=== PATIENT | female | born 1990 | race American Indian/Alaskan Native ===

== ENCOUNTER 2017-07-16 06:44 | Inpatient (IN) | payer MEDICAID ==
--- NOTE | 2017-07-16 07:27 | History and Physical Report ---
History of Present Illness Date of examination: 07/16/17 (pt presents c/o ctx and lose of mucous plug) History of present illness: EDC Confirmation: 07/29/2017 Gestational Age: 15 5/7 weeks Past History : 2 Term Births: 0 Premature Births: 0 Living Children: 0 Para: 0 Mult. Births: 0 Prev : 0 Prev. attempt? 0 Aborta: 1 Elect. Ab: 0 Spont. 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 of genital herpes: yes Partner hx. of genital herpes: no Rash, Viral, or Febrile illness since last LMP? no Varicella/Chicken Pox Status: Previous Disease Genetic History Congenital Heart Defect: Mom: no Dad: no Kandy Disease: Mom: no Dad: no Thalassemia Mom: no Dad: no Neural Tube Defect Mom: no Dad: no Down's Syndrome Mom: no Dad: no Jarrod-Sachs Mom: no Dad: no Sickle Cell Disease/Trait Mom: no Dad: no Hemophilia Mom: no Dad: no Muscular Dystrophy Mom: no Dad: no Cystic Fibrosis Mom: no Dad: no Claudia Chorea Mom: no Dad: no Mental Retardation Mom: no Dad: no Fragile X Mom: no Dad: no Other Genetic/Chromosomal Disorder Mom: no Dad: no Child w/other defect Mom: no Dad: no Enviromental Exposures Xray Exposure: no Medication, drug, or alcohol use since LMP: no Chemical/Other Exposure: no Exposure to Cat Liter: no Hx of Parvovirus (Fifth Disease): no Occupational Exposure to Children: none Active Medications (reviewed today): VALACYCLOVIR HCL 1 GM ORAL TABLET (VALACYCLOVIR HCL) 1 tab po qd x5days prn Current Allergies (reviewed today): No known allergies Laboratory Results Routine Urinalysis Leukocytes: negative Nitrite: negative Urobilinogen: negative Protein: negative Blood: negative Ketone: negative Bilirubin: negative Glucose: negative Urine HCG: positive Review of Systems General Denies fever, chills, sweats, anorexia, fatigue, weakness, malaise, weight loss and sleep disorder. Denies nausea, vomiting, headache, swelling of legs, abdominal pain, vaginal discharge, vaginal bleeding and contractions. Denies vaginal discharge, incontinence, dysuria, hematuria, urinary frequency, amenorrhea, menorrhagia, abnormal vaginal bleeding, pelvic pain, genital sores, decreased libido, painful periods, painful sex, urinary urgency, hot flashes, vaginal dryness, vaginal itching and vaginal odor. CV Denies chest pains, palpitations, syncope, dyspnea on exertion, orthopnea, PND and peripheral edema. Resp Denies cough, dyspnea at rest, excessive sputum, hemoptysis, wheezing and pleurisy. GI Denies nausea, vomiting, diarrhea, constipation, change in bowel habits, abdominal pain, melena, hematochezia, jaundice, gas/bloating, indigestion/ heartburn, dysphagia and odynophagia. Endo Denies cold intolerance, heat intolerance, polydipsia, polyphagia, polyuria and unusual weight change. Breast Denies left breast lump, right breast lump, nipple discharge, bloody discharge from nipple, breast pain, abnormal mammogram and breast enlargement. MS Denies back pain, joint pain, joint swelling, muscle cramps, muscle weakness, stiffness, arthritis, sciatica, restless legs, leg pain at night and leg pain with exertion. Derm Denies rash, itching, dryness and suspicious lesions. Neuro Denies paralysis, paresthesias, headache, seizures, tremors, vertigo, transient blindness, frequent falls, frequent headaches and difficulty walking. Psych Denies depression, anxiety, irritability and mood swings. Eyes Denies blurring, diplopia, irritation, discharge, vision loss, eye pain and photophobia. ENT Denies earache, ear discharge, tinnitus, decreased hearing, nasal congestion, nosebleeds, sore throat and hoarseness. Allergy Denies urticaria, allergic rash, hay fever and recurrent infections. Heme Denies abnormal bruising, bleeding and enlarged lymph nodes. 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 Ht: 15w size: AGA FHT: + Past History - Obstetrical History Expected Date of Delivery: 07/29/17 Actual Gestation: 38 Week(s) 1 Day(s) : 2 Para: 0 Spontaneous Abortions: 1 Number of Living Children: 0 Medications and Allergies Allergies Allergy/AdvReac Type Severity Reaction Status Date / Time No Known Allergies Allergy Verified 02/10/17 16:53 Home Medications Medication Instructions Recorded Confirmed Last Taken Type Valacyclovir HCl [Valtrex] 1,000 mg PO QDAY 07/16/17 07/16/17 07/15/17 History - Vital Signs Vital signs: Vital Signs Temp Resp 98.3 F 20 07/16/17 07:06 07/16/17 07:06 Temp Pulse Resp BP Pulse Ox 98.3 F 94 H 20 129/87 96 07/16/17 07:06 07/16/17 07:20 07/16/17 07:06 07/16/17 07:10 07/16/17 07:20 - Physical Exam Breasts: Positive: deferred Cardiovascular: Regular rate, Normal S1, Normal S2 Lungs: Positive: Normal air movement Abdomen: Positive: normal appearance, soft, normal bowel sounds. Negative: distention, tenderness Genitourinary (Female): Positive: normal external genitalia, normal perenium Vulva: both: normal Vagina: Positive: normal moisture. Negative: discharge Cervix: Negative: lesion, discharge Uterus: Positive: normal size, normal contour Adnexa: both: normal Anus/Rectum: Positive: normal perianal skin, heme negative. Negative: rectal mass, hemorrhoids Extremities: Deep Tendon Reflex Grade: Normal +2 - Obstetrical FHR: category 1 (FHTs 170) Uterine Contraction Monitor Mode: External Cervical Dilatation: 6 (per car driver) Cervical Effacement Percentage: 90 (BBOW) station: 0 Uterine Contraction Frequency (min): q5-8 Uterine Contraction Pattern: Regular Uterine Tone Measurement Phase: Resting Uterine Contraction Intensity: Moderate Results All other labs normal. Strep Gp B BARB Negative HBsAg Screen Negative Negative *1 RPR Non Reactive Non Reactive *2 Rubella Antibodies, IgG 11.00 index Immune >0.99 *3 Non-immune <0.90 Equivocal 0.90 - 0.99 Immune >0.99 ABO Grouping A *4 Rh Factor Positive *5 Please note: Prior records for this patient's ABO / Rh type are not available for additional verification. Antibody Screen Negative Negative *6 WBC 6.4 x10E3/uL 3.4-10.8 *7 RBC 4.04 x10E6/uL 3.77-5.28 *8 Hemoglobin [L] 8.9 g/dL 11.1-15.9 *9 Effective March 12, 2017 the reference interval for Hemoglobin MALES only will be changing to: Males 13-15 years: 12.6 - 17.7 Males >15 years: 13.0 - 17.7 Hematocrit [L] 28.4 % 34.0-46.6 *10 MCV [L] 70 fL 79-97 *11 MCH [L] 22.0 pg 26.6-33.0 *12 MCHC [L] 31.3 g/dL 31.5-35.7 *13 RDW [H] 20.4 % 12.3-15.4 *14 Platelets 324 x10E3/uL 150-379 *15 Neutrophils 59 % Not Estab. *16 Lymphs 32 % Not Estab. *17 Monocytes 9 % Not Estab. *18 Eos 0 % Not Estab. *19 Basos 0 % Not Estab. *20 ! Immature Cells <No Reported Value> *21 Neutrophils (Absolute) 3.8 x10E3/uL 1.4-7.0 *22 Lymphs (Absolute) 2.1 x10E3/uL 0.7-3.1 *23 Monocytes(Absolute) 0.6 x10E3/uL 0.1-0.9 *24 Eos (Absolute) 0.0 x10E3/uL 0.0-0.4 *25 Baso (Absolute) 0.0 x10E3/uL 0.0-0.2 *26 ! Immature Granulocytes 0 % Not Estab. *27 ! Immature Grans (Abs) 0.0 x10E3/uL 0.0-0.1 *28 ! NRBC <No Reported Value> *29 Hematology Comments: <No Reported Value> *30 Tests: (2) AFP Tetra (478049) ! Results Report *31 ! Test Results: *Screen Negative* *32 Tests: (3) Cystic Fibrosis Profile (106279) ! CF, Screen Comment: *55 RESULTS: Negative for 32 mutations analyzed Tests: (4) HB Solu + Rflx Fra (049720) Hemoglobin (Hgb) Solubility Negative Negative *57 Tests: (5) Panel 454469 (775719) HIV Screen 4th Generation wRfx Non Reactive Non Reactive *58 Tests: (6) HCV Ab w/Rflx to Verification (366662) ! HCV Ab <0.1 s/co ratio 0.0-0.9 *59 Tests: (7) Comment: (322262) ! Comment: SPRCS *60 Non reactive HCV antibody screen is consistent with no HCV infection, unless recent infection is suspected or other evidence exists to indicate HCV infection. Tests: (8) Urine Culture, Routine (078047) Urine Culture, Routine Final report *61 Tests: (9) Result (707027) ! Result 1 MUG *62 Mixed urogenital chari Greater than 100,000 colony forming units per mL Assessment and Plan 26yo @ 38 weeks with spontaneous labor; membranes intact on admission. GBS negative. 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 Orders in EMR. Anticipate delivery.
[2017-07-16 07:57] LABS: Mean Corpuscular HGB Conc 29 % (30-34); Platelet Count 292 K/mm3 (140-440); Red Blood Count 4.39 M/mm3 (3.65-5.03)
[2017-07-16 07:58] LABS: Hemoglobin 8.2 gm/dl (10.1-14.3); Mean Corpuscular Hemoglobin 19 pg (28-32); Mean Corpuscular Volume 64 fl (79-97)
[2017-07-16 07:59] LABS: Red Cell Distribution Width 20.2 % (13.2-15.2)
[2017-07-16] MEDS ORDERED: ZOFRAN IV PRN (08:00)
[2017-07-16] MEDS ORDERED: MINERAL OIL PO PRN (08:00)
[2017-07-16] MEDS ORDERED: SUBLIMAZE IV PRN (08:00)
[2017-07-16] MEDS ORDERED: XYLOCAINE 2% INFILTRATI NR (08:00)
[2017-07-16] MEDS ORDERED: ePHEDrine SULFATE IV PRN ×2 (08:00→08:26)
[2017-07-16] MEDS: LACTATED RINGERS 1,000 ML IV SCH ×2 (08:00→08:55)
[2017-07-16] MEDS ORDERED: PITOCin/NS 30 UNIT/500ML 30 UNITS/500 ML BAG IV SCH (08:00)
[2017-07-16] MEDS ORDERED: BRETHINE SUB-Q PRN (08:00)
[2017-07-16] MEDS ORDERED: NARCAN 2 MG/2 ML IV PRN (08:26)
--- NOTE | 2017-07-16 08:26 | Anesthesia Consultation ---
Anesthesia Consult and Med Hx Date of service: 07/16/17 - Airway Anesthetic Teeth Evaluation: Good ROM Head & Neck: Adequate Mental/Hyoid Distance: Adequate Mallampati Class: Class II Intubation Access Assessment: Probably Good - Pre-Operative Health Status ASA Pre-Surgery Classification: ASA2 Proposed Anesthetic Plan: Epidural, Spinal - Pulmonary Hx Asthma: No - Cardiovascular System Hx Hypertension: No - Central Nervous System Hx Seizures: No Hx Psychiatric Problems: No - Endocrine Hx Renal Disease: No Hx Hypothyroidism: No Hx Hyperthyroidism: No - Hematic Hx Anemia: Yes (PICA) Hx Sickle Cell Disease: No - Other Systems Hx Alcohol Use: No
[2017-07-16 10:40] LABS: Bacteria,Urine 1+ /HPF (Negative); Bilirubin,Urine NEG (Negative); Blood,Urine NEG (Negative); Color,Urine Yellow (Yellow); Mucus,Urine 1+ /HPF
[2017-07-16] MEDS: fentaNYL-BUPIV 2 MCG/ML-0.125% 200 MCG/100 ML BAG EPIDURAL SCH ×2 (11:07→12:30)
[2017-07-16 11:28] LABS: Alanine Aminotransferase 7 units/L (7-56); Uric Acid 4.1 mg/dL (3.5-7.6)
[2017-07-16] MEDS: PITOCin/NS 20 UNIT/1000ML DRIP 20 UNITS/1,000 ML BAG IV SCH ×2 (12:27→14:03)
--- NOTE | 2017-07-16 12:50 | Procedure Note ---
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 True knot noted in cord, loose. Baby skin to skin with mom. extra digit noted on left hand; will f/u with peds. Placenta and membrane del complete and intact, 3 vessel cord. IVFs pit. 8/ 9, EBL 300, Wgt 6-10 First degree lac noted no repair indicated. Mom and baby remain LDR stable. Bp elevated Will monitor PP Reviewed BP readings with Will go ahead with MGSO4 now Orders in EMR - A at 1 minute: 8 at 5 minutes: 9 Gender: Male (wgt 6-10)
[2017-07-16] MEDS ORDERED: TUCKS PAD TP PRN (12:54)
[2017-07-16] MEDS ORDERED: DULCOLAX PR PRN (12:54)
[2017-07-16] MEDS ORDERED: BENADRYL PO PRN (12:54)
[2017-07-16] MEDS ORDERED: TYLENOL PO PRN (12:54)
[2017-07-16] MEDS ORDERED: MAGNESIUM SULFATE 4GM/100ML 4 GM/100 ML BAG IV ONE (12:54)
[2017-07-16] MEDS ORDERED: LANSINOH TP PRN (12:54)
[2017-07-16] MEDS ORDERED: MILK OF MAGNESIA PO PRN (12:54)
[2017-07-16] MEDS ORDERED: PHENERGAN PO PRN (12:54)
[2017-07-16] MEDS ORDERED: LACTATED RINGERS 1,000 ML IV SCH (13:00)
[2017-07-16] MEDS ORDERED: MAGNESIUM SULFATE 40GM/1000ML 40 GM/1,000 ML BAG IV SCH (13:00)
[2017-07-16] MEDS ORDERED: SODIUM CHLORIDE FLUSH SYRINGE 10 ML IV NR (13:00)
[2017-07-16] MEDS: MOTRIN PO SCH ×2 (13:14→19:57)
[2017-07-17 04:53] LABS: Hematocrit 24.4 % (30.3-42.9); Hemoglobin 7.1 gm/dl (10.1-14.3)
[2017-07-17] MEDS: MOTRIN PO SCH ×3 (05:18→23:16)
[2017-07-17] MEDS ORDERED: M-M-R II VACCINE SUB-Q ONE (06:00)
[2017-07-17] MEDS ORDERED: BOOSTRIX IM ONE (06:00)
--- NOTE | 2017-07-17 06:44 | Progress Note ---
Assessment and Plan Pt A&O X 3 Pt's only c/o is the nicolas cath. BP 110/70 FF below umb Lochia small Perineum intact H&H 10/30 drop r/t blood loss from delivery Pt is asymptomatic Doing well s/p vag del PP PreE. P: consulted with MGSO4 decreased to 1gm/hr Will remove nicolas and monitor I&O from voided urine. Will plan d/c for AM Subjective - Subjective Date of service: 07/17/17 (pt c/o nicolas cath pain) Principal diagnosis: Day #1 s/p vag delivery PP elevated BP on MGSO4 Interval history: EDC Confirmation: 07/29/2017 Gestational Age: 15 5/7 weeks Past History : 2 Term Births: 0 Premature Births: 0 Living Children: 0 Para: 0 Mult. Births: 0 Prev : 0 Prev. attempt? 0 Aborta: 1 Elect. Ab: 0 Spont. 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 of genital herpes: yes Partner hx. of genital herpes: no Rash, Viral, or Febrile illness since last LMP? no Varicella/Chicken Pox Status: Previous Disease Genetic History Congenital Heart Defect: Mom: no Dad: no Kandy Disease: Mom: no Dad: no Thalassemia Mom: no Dad: no Neural Tube Defect Mom: no Dad: no Down's Syndrome Mom: no Dad: no Jarrod-Sachs Mom: no Dad: no Sickle Cell Disease/Trait Mom: no Dad: no Hemophilia Mom: no Dad: no Muscular Dystrophy Mom: no Dad: no Cystic Fibrosis Mom: no Dad: no Nolan Chorea Mom: no Dad: no Mental Retardation Mom: no Dad: no Fragile X Mom: no Dad: no Other Genetic/Chromosomal Disorder Mom: no Dad: no Child w/other defect Mom: no Dad: no Enviromental Exposures Xray Exposure: no Medication, drug, or alcohol use since LMP: no Chemical/Other Exposure: no Exposure to Cat Liter: no Hx of Parvovirus (Fifth Disease): no Occupational Exposure to Children: none Active Medications (reviewed today): VALACYCLOVIR HCL 1 GM ORAL TABLET (VALACYCLOVIR HCL) 1 tab po qd x5days prn Current Allergies (reviewed today): No known allergies Laboratory Results Routine Urinalysis Leukocytes: negative Nitrite: negative Urobilinogen: negative Protein: negative Blood: negative Ketone: negative Bilirubin: negative Glucose: negative Urine HCG: positive Review of Systems General Denies fever, chills, sweats, anorexia, fatigue, weakness, malaise, weight loss and sleep disorder. Denies nausea, vomiting, headache, swelling of legs, abdominal pain, vaginal discharge, vaginal bleeding and contractions. Denies vaginal discharge, incontinence, dysuria, hematuria, urinary frequency, amenorrhea, menorrhagia, abnormal vaginal bleeding, pelvic pain, genital sores, decreased libido, painful periods, painful sex, urinary urgency, hot flashes, vaginal dryness, vaginal itching and vaginal odor. CV Denies chest pains, palpitations, syncope, dyspnea on exertion, orthopnea, PND and peripheral edema. Resp Denies cough, dyspnea at rest, excessive sputum, hemoptysis, wheezing and pleurisy. GI Denies nausea, vomiting, diarrhea, constipation, change in bowel habits, abdominal pain, melena, hematochezia, jaundice, gas/bloating, indigestion/ heartburn, dysphagia and odynophagia. Endo Denies cold intolerance, heat intolerance, polydipsia, polyphagia, polyuria and unusual weight change. Breast Denies left breast lump, right breast lump, nipple discharge, bloody discharge from nipple, breast pain, abnormal mammogram and breast enlargement. MS Denies back pain, joint pain, joint swelling, muscle cramps, muscle weakness, stiffness, arthritis, sciatica, restless legs, leg pain at night and leg pain with exertion. Derm Denies rash, itching, dryness and suspicious lesions. Neuro Denies paralysis, paresthesias, headache, seizures, tremors, vertigo, transient blindness, frequent falls, frequent headaches and difficulty walking. Psych Denies depression, anxiety, irritability and mood swings. Eyes Denies blurring, diplopia, irritation, discharge, vision loss, eye pain and photophobia. ENT Denies earache, ear discharge, tinnitus, decreased hearing, nasal congestion, nosebleeds, sore throat and hoarseness. Allergy Denies urticaria, allergic rash, hay fever and recurrent infections. Heme Denies abnormal bruising, bleeding and enlarged lymph nodes. 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 size: AGA FHT: + Patient reports: appetite normal, voiding normally (clear yellow urine to nicolas bag), pain well controlled [place]: doing well Objective - Vital Signs Latest vital signs: Vital Signs Temp Pulse Resp BP BP Pulse Ox 07/17/17 04:59 97.9 F 93 H 20 113/79 99 07/17/17 03:34 98.2 F 86 20 103/63 96 07/17/17 00:53 97.5 F L 89 20 107/70 96 07/16/17 23:13 98.8 F 94 H 20 111/67 98 07/16/17 21:30 98.1 F 91 H 20 116/73 97 07/16/17 18:42 98.2 F 87 18 136/91 97 07/16/17 16:40 97.8 F 79 18 117/70 99 07/16/17 14:40 98.4 F 72 16 128/82 100 07/16/17 14:24 82 135/89 07/16/17 14:11 77 128/80 07/16/17 13:56 80 120/79 07/16/17 13:41 83 125/77 07/16/17 13:36 82 136/82 07/16/17 13:30 83 131/78 07/16/17 13:26 82 138/78 04/09/18 13:21 82 141/85 07/16/17 13:16 80 139/85 07/16/17 13:09 90 142/84 07/16/17 12:54 89 140/82 07/16/17 12:49 93 H 147/67 07/16/17 12:38 94 H 158/73 07/16/17 12:25 90 195/85 07/16/17 12:18 89 140/88 07/16/17 12:15 96 H 100 07/16/17 12:10 88 100 07/16/17 12:09 111 H 189/126 07/16/17 12:05 83 100 07/16/17 12:00 79 100 07/16/17 11:55 88 100 07/16/17 11:50 78 100 07/16/17 11:45 77 100 07/16/17 11:40 79 100 07/16/17 11:35 81 100 07/16/17 11:30 78 100 07/16/17 11:26 81 119/67 07/16/17 11:25 79 100 07/16/17 11:20 79 100 07/16/17 11:15 84 100 07/16/17 11:10 71 120/64 100 07/16/17 11:05 81 100 07/16/17 11:00 78 100 07/16/17 10:55 75 130/69 100 07/16/17 10:50 98 H 100 07/16/17 10:45 76 100 07/16/17 10:40 75 100 07/16/17 10:35 69 100 07/16/17 10:30 69 100 07/16/17 10:25 72 100 07/16/17 10:20 79 100 07/16/17 10:15 76 100 07/16/17 10:10 67 135/101 100 07/16/17 10:05 79 100 07/16/17 10:00 97.3 F L 76 18 100 07/16/17 09:55 78 116/74 100 07/16/17 09:50 81 100 07/16/17 09:49 76 118/66 07/16/17 09:47 93 H 126/93 07/16/17 09:45 73 100 07/16/17 09:40 91 H 100 07/16/17 09:38 79 143/69 07/16/17 09:35 78 100 07/16/17 09:33 88 139/87 07/16/17 09:30 78 100 07/16/17 09:28 78 139/100 07/16/17 09:25 79 100 07/16/17 09:23 86 126/81 07/16/17 09:20 84 100 07/16/17 09:18 81 126/75 07/16/17 09:15 86 100 07/16/17 09:12 76 143/85 07/16/17 09:11 98 H 141/85 07/16/17 09:09 85 99 07/16/17 09:08 82 127/81 07/16/17 09:06 88 120/73 07/16/17 09:04 93 H 131/73 100 07/16/17 09:02 88 128/73 07/16/17 09:00 99 H 139/85 07/16/17 08:59 86 100 07/16/17 08:54 91 H 100 07/16/17 08:49 88 142/90 07/16/17 08:33 100 H 141/101 07/16/17 08:19 90 137/90 07/16/17 08:03 89 129/81 07/16/17 07:48 92 H 139/80 07/16/17 07:45 96.9 F L 18 07/16/17 07:35 96 H 100 07/16/17 07:30 96 H 99 07/16/17 07:25 95 H 97 07/16/17 07:20 94 H 96 07/16/17 07:15 100 H 99 07/16/17 07:14 54 L 55 L 07/16/17 07:10 88 129/87 99 07/16/17 07:06 98.3 F 20 Intake and Output 07/16/17 07/16/17 07/17/17 14:59 22:59 06:59 Intake Total 314.583 240 840 Output Total 1600 1700 1100 Balance -1285.417 -1460 -260 Intake: IV 314.583 Lactated Ringers 1,000 ml 114.583 @ 125 mls/hr IV [facility] Rx#:[id number] PITOCin/NS 20 UNIT/1000ML 200 DRIP 20 units In 1,000 ml @ 125 mls/hr IV [facility] Rx#:[id number] Oral 240 480 Intake, Free Water 360 Output: Urine 1600 1700 1100 Indwelling Catheter 1000 1700 1100 Uretheral (Nicolas) 600 Other: Total, Intake Amount 240 480 Total, Output Amount 7020 024 3576 Estimated Blood Loss 300 - Exam Breasts: Present: normal Cardiovascular: Present: Regular rate Lungs: Present: Normal air movement Abdomen: Present: normal appearance, soft Uterus: Present: normal, firm, fundal height below umbilicus Extremities: Present: normal Deep Tendon Reflex Grade: Normal +2 Incision: Present: normal, dry, intact - Labs Labs: Abnormal lab results 07/16/17 07/16/17 07/16/17 Range/Units 07:20 10:46 21:26 Hgb 8.2 L (10.1-14.3) gm/dl Hct 28.0 L (30.3-42.9) % MCV 64 L (79-97) fl MCH 19 L (28-32) pg MCHC 29 L (30-34) % RDW 20.2 H (13.2-15.2) % Creatinine 0.5 L (0.7-1.2) mg/dL Magnesium 5.10 H (1.7-2.3) mg/dL Lactate Dehydrogenase 318 H (91-180) units/L 07/16/17 07/17/17 07/17/17 Range/Units 22:29 04:19 04:19 Hgb 7.1 L (10.1-14.3) gm/dl Hct 24.4 L (30.3-42.9) % MCV (79-97) fl MCH (28-32) pg MCHC (30-34) % RDW (13.2-15.2) % Creatinine (0.7-1.2) mg/dL Magnesium 4.40 H 5.30 H (1.7-2.3) mg/dL Lactate Dehydrogenase (91-180) units/L
--- NOTE | 2017-07-17 08:50 | Event Note ---
Date: 07/17/17 Agree with exam and noted of MW. Will con't MgSO4, con't to monitor bps levels. Pt is w/o sx at this time.
[2017-07-18] MEDS: MOTRIN PO SCH (05:15)
--- NOTE | 2017-07-18 07:53 | Discharge Summary ---
Providers - Providers Date of Admission: 07/16/17 07:44 Date of discharge: 07/18/17 (desires d/c home) Attending physician: ADAM GEIGER Primary care physician: ADAM GEIGER Hospitalization Reason for admission: Labor Condition: Good Pertinent studies: H&H 7.1/24.4 Procedures: Vaginal delivery Hospital course: normal labor and delivery w/ elevated b/p. Magnesium sulfate x24h . Disposition: DC- TO HOME OR SELFCARE - Discharge Diagnoses (1) Pre-eclampsia, mild, Status: Acute (2) Spontaneous vaginal delivery Status: Acute Core Measure Documentation - Palliative Care Palliative Care/ Comfort Measures: Not Applicable - Core Measures Any of the following diagnoses?: none Exam - Constitutional Vitals: Temp Pulse Resp BP Pulse Ox 98.6 F 81 16 120/82 96 07/18/17 04:00 07/18/17 04:00 07/18/17 04:00 07/18/17 04:00 07/17/17 16:59 General appearance: Present: no acute distress, well-nourished - EENT Eyes: Present: PERRL ENT: hearing intact, clear oral mucosa - Neck Neck: Present: supple, normal ROM - Respiratory Respiratory effort: normal Respiratory: bilateral: CTA - Cardiovascular Heart Sounds: Present: S1 & S2. Absent: rub, click - Extremities Extremities: pulses symmetrical, No edema Peripheral Pulses: within normal limits - Abdominal General gastrointestinal: Present: soft, non-tender, non-distended, normal bowel sounds Female genitourinary: Present: normal - Integumentary Integumentary: Present: clear, warm, dry - Musculoskeletal Musculoskeletal: gait normal, strength equal bilaterally - Psychiatric Psychiatric: appropriate mood/affect, intact judgment & insight - Neurologic Neurologic: CNII-XII intact, moves all extremities - Additional findings Additional findings: Lochia scant, VSSAF, fundus firm and @ u, breast and bottle feeding Plan Activity: no restrictions Diet: regular Follow up with: ADAM GEIGER MD [Primary Care Provider] - 7 Days (Congtaulations! Please call [phone] to schedule your son's circumcision and your b/p check in 1 week. Bring EMLA cream to your son's appointment and await further teaching. Call for any questions or concerns.) Prescriptions: Docusate Sodium [Colace] 100 mg PO BID PRN #60 capsule PRN Reason: Constipation Ferrous Sulfate [Feosol 325 MG tab] 325 mg PO BID #60 tablet Ibuprofen [Motrin 800 MG tab] 800 mg PO TID PRN #30 tablet PRN Reason: Pain Lidocain2.5%/Prilocai2.5% [Emla] 5 gm TP PRN #1 tube
[2017-07-18 09:31] VITALS: BP 119/79
== END 2017-07-18 15:00 | disposition home or self-care (01) | DRG 774 ==
LOC: TRG 06:44 → LD 07:44 → OB 15:43
PROVIDERS: ADMIT Obstetrics & Gynecology; ATTEND Obstetrics & Gynecology
PROC: 10E0XZZ Delivery of Products of Conception, External Approach (ICD-10-PCS; principal; 2017-07-16)
PROC: 3E0R3BZ Introduction of Anesthetic Agent into Spinal Canal, Percutaneous Approach (ICD-10-PCS; 2017-07-16)
PROC: 00HU33Z Insertion of Infusion Device into Spinal Canal, Percutaneous Approach (ICD-10-PCS; 2017-07-16)
PROC: 3E0234Z Introduction of Serum, Toxoid and Vaccine into Muscle, Percutaneous Approach (ICD-10-PCS; 2017-07-17)
DX: O69.2XX0 Labor and delivery complicated by other cord entanglement, with compression, not applicable or unspecified (principal); O14.05 Mild to moderate pre-eclampsia, complicating the puerperium; Z3A.38 38 weeks gestation of pregnancy; Z37.0 Single live birth; O69.81X0 Labor and delivery complicated by cord around neck, without compression, not applicable or unspecified; O70.0 First degree perineal laceration during delivery; Z23 Encounter for immunization; O98.32 Other infections with a predominantly sexual mode of transmission complicating childbirth; A60.00 Herpesviral infection of urogenital system, unspecified
CPT/HCPCS: 36415; 81001; 82565; 83615; 83735; 84450; 84460; 84550; 85014; 85018; 85027; 86592; 86850; 86900; 86901; 99211; G0463; J2590; J3475; J7120